=== PATIENT | female | born 1995 | race Two or more races ===

== ENCOUNTER 2018-04-28 13:10 | Emergency (ER) | payer OTHER ==
[2018-04-28 13:19] VITALS: BP 113/62; PULSE 111; TEMP 99.5; BMI 29.2
[2018-04-28] MEDS ORDERED: ACETAMINOPHEN 500 MG TABLET (FP) PO ONE (14:29)
--- NOTE | 2018-04-28 14:37 | PDOC ---
History of Present Illness - General Chief Complaint: Respiratory Stated Complaint: FLU LIKE SYMPTOMS Time Seen by Provider: 04/28/18 13:40 History Source: Patient Exam Limitations: No Limitations - History of Present Illness Initial Comments: 04/28/18 14:31 2 days ago had onset of cough, fevers, runny nose with yellow phlegm production. States his use Tylenol with some minimal resolved. States is progressively worsening and came for evaluation. Timing/Duration: reports: just prior to arrival Severity: reports: mild, moderate Past History - Travel Traveled outside of the country in the last 30 days: No Close contact w/someone who was outside of country & ill: No - Past Medical History Allergies/Adverse Reactions: Allergies Allergy/AdvReac Type Severity Reaction Status Date / Time azithromycin [From Zithromax] Allergy Severe Difficulty Verified 04/28/18 13:16 Breathing Home Medications: Ambulatory Orders Guaifenesin [Mucinex -] 600 mg PO BID #14 tablet.er 04/28/18 COPD: No - Immunization History Immunization Up to Date: Yes - Suicide/Smoking/Psychosocial Hx Smoking History: Current every day smoker Number of Cigarettes Smoked Daily: 5 Information on smoking cessation initiated: No Hx Alcohol Use: No Drug/Substance Use Hx: No Review of Systems - Review of Systems Able to Perform ROS?: Yes Is the patient limited [place]i proficient: Yes Constitutional: Yes: Symptoms Reported, See HPI, Chills, Fever, Loss of Appetite , Malaise HEENTM: Yes: Symptoms Reported, See HPI, Nose Congestion, Throat Pain Respiratory: Yes: Symptoms reported, See HPI, Cough (with yellow phlegm ) : No: Symptoms Reported Musculoskeletal: Yes: Symptoms Reported, See HPI, Back Pain, Joint Pain, Joint Swelling Integumentary: Yes: See HPI. No: Symptoms Reported All Other Systems: Reviewed and Negative *Physical Exam - Vital Signs Last Vital Signs Temp Pulse Resp BP Pulse Ox 99.5 F 111 H 18 113/62 100 04/28/18 13:17 04/28/18 13:17 04/28/18 13:17 04/28/18 13:17 04/28/18 13:17 - Physical Exam General Appearance: Yes: Nourished, Appropriately Dressed, Apparent Distress, Mild Distress HEENT: positive: JACKIE, TMs Normal, Pharynx Normal (no redness / swelling or exudate ) Neck: positive: Tender, Supple, Lymphadenopathy (R), Lymphadenopathy (L) Respiratory/Chest: positive: Lungs Clear, Normal Breath Sounds Gastrointestinal/Abdominal: positive: Normal Bowel Sounds, Tender, Soft Extremity: positive: Normal Capillary Refill, Normal Inspection Integumentary: positive: Normal Color, Dry, Warm Neurologic: positive: java programmer II-XII NML intact, Fully Oriented, Alert, Normal Mood/ Affect, Normal Response Moderate Sedation - Procedure Monitoring Vital Signs: Procedure Monitoring Vital Signs Temperature 99.5 F 04/28/18 13:17 Pulse Rate 111 H 04/28/18 13:17 Respiratory Rate 18 04/28/18 13:17 Blood Pressure 113/62 04/28/18 13:17 O2 Sat by Pulse Oximetry (%) 100 04/28/18 13:17 Progress Note - Progress Note Progress Note: upper respiratory infection *DC/Admit/Observation/Transfer Diagnosis at time of Disposition: Upper respiratory infection, viral - Discharge Dispostion Disposition: HOME Condition at time of disposition: Stable Decision to Admit order: No - Prescriptions Prescriptions: Guaifenesin [Mucinex -] 600 mg PO BID #14 tablet.er - Referrals - Patient Instructions Printed Discharge Instructions: DI for Viral Upper Respiratory Infection -- Adult Additional Instructions: Rest, drink lots of fluids: Teas, water, soups, Pedialyte Saltwater gargles Steamy showers/seem to face break up mucus Avoid contact with others until fevers and cough resolved Lots of handwashing and good hygiene Continue [id number] medications for symptomatic relief Tylenol or Motrin for fever and pain Followup with private physician in one to 2 days as needed Return to emergency department for worsened symptoms, fevers, dehydration - Post Discharge Activity Forms/Work/School Notes: Back to Work
[2018-04-28] MEDS ORDERED: ACETAMINOPHEN 500 MG TABLET (FP) ONE (14:44)
== END 2018-04-28 16:02 | disposition home or self-care (01) ==
LOC: JERFT 13:10
DX: J06.9 Acute upper respiratory infection, unspecified (principal); B97.89 Other viral agents as the cause of diseases classified elsewhere
CPT/HCPCS: 84703; 99281-25